=== PATIENT | female | born 1995 | race Caucasian/White ===

== ENCOUNTER 2017-06-08 12:24 | Emergency (ER) | payer SELFPAY | END 2017-06-08 13:57 | disposition home or self-care (01) | LOC: ERS 12:24 | DX: J02.9 Acute pharyngitis, unspecified (principal); K21.9 Gastro-esophageal reflux disease without esophagitis; J45.909 Unspecified asthma, uncomplicated; F32.9 Major depressive disorder, single episode, unspecified; F17.210 Nicotine dependence, cigarettes, uncomplicated; Z79.899 Other long term (current) drug therapy | CPT/HCPCS: 87081; 87430; 99283 ==

== ENCOUNTER 2018-03-07 23:33 | Emergency (ER) | payer SELFPAY ==
[2018-03-07 23:51] LABS: Bilirubin Negative (Negative); Blood, Urine Negative (Negative); Clarity CLEAR (Clear); Glucose, Urine (Dipstick) Negative (Negative); Leukocyte Moderate (Negative); Nitrite Negative (Negative); Pregnancy Test - Urine (BHCG) POSITIVE (Negative); Pregu Control Background? CLEAR/WHITE (CLR/WHITE); Pregu Control Bar Appear? YES (CONTROL BAR); Protein, Urine (Dipstick) Negative (Neg-Trace); Specific Gravity 1.016 (1.002-1.036); Specific Gravity, Urine 1.016 (1.002-1.036)
[2018-03-07 23:53] LABS: Bacteria/HPF Rare-Few HPF (None Seen); Hyaline Casts/LPF 0-3 HYALINE CAST LPF (0-3 Hyaline); Pathc Cast-AUWi Flag 0.58 (0-2.49); RBC/HPF 0-3 HPF (0-3); Squamous Epithelial 0-3 HPF (0-3)
[2018-03-08 00:23] LABS: #Basophils 0.1 thou/uL (0.0-0.2); #Eosinphils 0.2 thou/uL (0.0-0.7); #Lymphocytes 1.9 thou/uL (1.20-3.40); #Monocytes 0.5 thou/uL (0.11-0.59); %Basophils 1.2 % (0.0-1.0); %Eosinophils 1.8 % (0.0-10.0); %Lymphocytes 19.9 % (21.0-51.0); %Monocytes 5.4 % (0.0-10.0); %Neutrophils 71.7 % (42.0-75.0); Hemoglobin 13.6 g/dL (12.0-16.0); Mean Corpuscular HGB CONC 33.3 g/dL (32.0-36.0); Mean Corpuscular Hemoglobin 31.1 pg (27.0-31.0); Mean Corpuscular Volume 93.4 fL (78.0-98.0); Mean Platelet Volume 9.1 fL (7.4-10.4); Platelet Count 261 thou/uL (130-400); RBC Distribution Width 10.9 % (11.5-14.5); Red Blood Cell (RBC) Count 4.38 mill/uL (4.20-5.40); White Blood Cell (WBC) Count 9.7 thou/uL (4.8-10.8)
[2018-03-08 00:46] LABS: ALT (SGPT) 7 U/L (8-55); AST (SGOT) 17 U/L (5-34); Albumin 4.4 g/dL (3.5-5.0); Alkaline Phosphatase 89 U/L (40-150); Anion Gap 13 mmol/L (10-20); BUN (Urea Nitrogen) 5 mg/dL (7.0-18.7); Bilirubin, Total 0.5 mg/dL (0.2-1.2); Calc. Creatinine Clearance 0 mL/min (70-130); Calcium 9.5 mg/dL (7.8-10.44); Carbon Dioxide 20 mmol/L (22-29); Chloride 105 mmol/L (98-107); Estimated GFR-MDRD Greater than 90; Globulin 3.4 g/dL (2.4-3.5); Glucose 91 mg/dL (70-105); Potassium 4.1 mmol/L (3.5-5.1); Protein, Total 7.8 g/dL (6.0-8.3); Sodium 134 mmol/L (136-145)
--- NOTE | 2018-03-08 07:33 | ULT ---
ULTRASOUND PELVIC ULTRASOUND TRANSVAGINAL DOPPLER DUPLEX: DATE: 03/08/18. TIME: 2:45 a.m. HISTORY: A 22-year-old female with positive beta HCG and right-sided pelvic pain. Rule out ectopic . TECHNIQUE: Transabdominal transducer used to evaluate intrapelvic contents using the urinary bladder as an acous tic window. Endovaginal transducer used to visualize intrapelvic contents in greater detail. Color fl ow Doppler and Pulsed Doppler spectral waveform analysis of ovaries. FINDINGS: There is an intrauterine gestational sac containing an embryonic pole with crown-rump length of 0.7 c m corresponding to 6W 4 D gestational age. No subchorionic hemorrhage. Embryonic heart rate is 118 bpm. No free fluid in the cul-de-sac. No evidence of ectopic . Bilateral arteries are nor mal in size and have blood flow by Doppler. No ovarian cyst. IMPRESSION: Live 1st trimester intrauterine gestation estimated to be 6 weeks 4 days gestational age. CARL Kraus POS: HERMAN
[2018-03-09 03:51] LABS: Chlamydia by PCR DETECTED (NotDetected); GC by PCR Not Detected (NotDetected)
== END 2018-03-08 04:32 | disposition left against medical advice (07) ==
LOC: ERS 23:33
DX: O99.89 Other specified diseases and conditions complicating pregnancy, childbirth and the puerperium (principal); R10.31 Right lower quadrant pain; O99.611 Diseases of the digestive system complicating pregnancy, first trimester; K21.9 Gastro-esophageal reflux disease without esophagitis; O99.341 Other mental disorders complicating pregnancy, first trimester; F32.9 Major depressive disorder, single episode, unspecified; O99.511 Diseases of the respiratory system complicating pregnancy, first trimester; J45.909 Unspecified asthma, uncomplicated; O99.331 Smoking (tobacco) complicating pregnancy, first trimester; F17.210 Nicotine dependence, cigarettes, uncomplicated; Z3A.01 Less than 8 weeks gestation of pregnancy
CPT/HCPCS: 36415; 76856; 80053; 81003; 81015; 81025; 84702; 85025; 87480; 87491; 87510; 87591; 87660; 93976

== ENCOUNTER 2018-08-02 22:05 | Day surgery (SDC) | payer OTHER, SELFPAY | END 2018-08-02 23:37 | disposition home or self-care (01) | LOC: ER/OP 22:05 | PROVIDERS: ATTEND Obstetrics & Gynecology | DX: Z29.13 Encounter for prophylactic Rho(D) immune globulin (principal); O99.519 Diseases of the respiratory system complicating pregnancy, unspecified trimester; J45.909 Unspecified asthma, uncomplicated; Z88.5 Allergy status to narcotic agent; Z88.8 Allergy status to other drugs, medicaments and biological substances | CPT/HCPCS: 90384; 96372 ==

== ENCOUNTER 2018-09-29 15:07 | Day surgery (SDC) | payer OTHER ==
--- NOTE | 2018-09-29 15:55 | PDOC.LDHP ---
Labor and Delivery H&P Chief complaint: other (Right flank pain at [address] quintero) HPI: 23 yo SAB1 in past at 36 weeks 1 day here forright flank pain moving to groin. No CTX, no LOF, no VB, no fevers, no trauama. Good FM. Review of Systems: complete ROS done and as per HPI Current gestational age (weeks): 36 (1 day) Due date: 10/26/18 Dating criteria: last menstrual period Grav: 2 Para: 0 OB History Details: SAB X 1 Current complications: none Abnormal US findings: No Past Medical History: Hypothuroidism; HX Asthma Current medications: pre-gely vitamins, other (Omnithyroid) Previous surgical history: other (Right foot surgery; esopgageal "stretching") Allergies/Adverse Reactions: Allergies Allergy/AdvReac Type Severity Reaction Status Date / Time amphetamine [From Adderall] Allergy Verified 09/29/18 15:43 cephalexin [From Keflex] Allergy Verified 09/29/18 15:42 codeine Allergy Verified 09/29/18 15:42 dextroamphetamine Allergy Verified 09/29/18 15:43 [From Adderall] Social history: none - Physical Exam Vital signs reviewed and normal: yes (114/72 92 18 98.5) General: NAD Heart: RRR Lungs: CTAB Abdomen: gravid Extremeties: no edema FHT: category 1 [place] contractions every: irritability - Assessment 36 weeks with right flank pain - Plan Plan: observation in L&D (Patient seen and examined. We will: 1. check CX 2. Order cath UA 3. Order renal and bladder sono to eval for jet 4. IVF hydrate)
[2018-09-29] MEDS ORDERED: Lactated Ringer's 1,000 ML IV SCH (16:00)
--- NOTE | 2018-09-29 17:18 | ULT ---
RENAL ULTRASOUND: 09/29/18 HISTORY: Possible renal colic. Multiple longitudinal and transverse images of the kidneys and bladder is obtained using a multihertz curvilinear transducer. Real time color flow images obtained. Images demonstrate both visualization of both kidneys. Right kidney measures 11.2 and left kidney 11 .5 cm from pole to pole. There is small amount of right sided hydronephrosis. The right ureteral jet could not be documented definitively. There is minimal but not significant degree of left sided hydro nephrosis. The left ureteral jet was visualized. No evidence of pulmonary parenchymal masses or lesions seen otherwise. IMPRESSION: Mild right sided hydronephrosis with inability to definitively visualize the right ureteral jet by co elizabeth flow sonography. POS: TYRELL
[2018-09-29 17:44] LABS: Bilirubin Negative (Negative); Blood, Urine Small (Negative); Clarity CLOUDY (Clear); Glucose, Urine (Dipstick) Negative (Negative); Leukocyte Large (Negative); Nitrite Negative (Negative); Protein, Urine (Dipstick) Negative (Neg-Trace); Specific Gravity, Urine 1.008 (1.002-1.036); pH, Urine 6.5 (5.0-9.0)
[2018-09-29 17:46] LABS: Bacteria/HPF None Seen HPF (None Seen); RBC/HPF 0-3 HPF (0-3)
[2018-09-29 17:47] LABS: Pathc Cast-AUWi Flag 3.12 (0-2.49); Yeast-AUWi Flag 39.7 (0-25.0)
[2018-09-29 17:59] LABS: Hyaline Casts/LPF 0-3 HYALINE CAST LPF (0-3 Hyaline); Other Casts/LPF None Seen LPF (0-3 Hyaline); Trichomonas/HPF 1+ HPF (None Seen); Urine Culture Reflex No No
--- NOTE | 2018-09-29 18:19 | PDOC.EVN ---
Event Note - Event Note Event Note: Renal sono ok except indeterminate right ureteral jet but no significant hydro outside of preg changes. Urine with trich species....may be STI CX Closed Will order VP3
--- NOTE | 2018-09-29 18:35 | PDOC.EVN ---
Event Note - Event Note Event Note: Ar Bedside and reviewed the UA results...trich reviewed...will treat with 2 grams flagyl po now STI info given Again, this was confirmed by [employer] verbal report to me. Partner needs RX, no sex until RX given
[2018-09-29] MEDS ORDERED: metroNIDAZOLE 500 MG TAB PO SCH (18:45)
== END 2018-09-29 19:00 | disposition home or self-care (01) ==
LOC: L&D/OP 15:07
PROVIDERS: ATTEND Obstetrics & Gynecology
DX: O99.89 Other specified diseases and conditions complicating pregnancy, childbirth and the puerperium (principal); R10.9 Unspecified abdominal pain; O99.283 Endocrine, nutritional and metabolic diseases complicating pregnancy, third trimester; E03.9 Hypothyroidism, unspecified; O99.513 Diseases of the respiratory system complicating pregnancy, third trimester; J45.909 Unspecified asthma, uncomplicated; O98.313 Other infections with a predominantly sexual mode of transmission complicating pregnancy, third trimester; A59.9 Trichomoniasis, unspecified; Z3A.36 36 weeks gestation of pregnancy; Z79.899 Other long term (current) drug therapy; Z88.1 Allergy status to other antibiotic agents; Z88.5 Allergy status to narcotic agent; Z88.8 Allergy status to other drugs, medicaments and biological substances; Z98.890 Other specified postprocedural states
CPT/HCPCS: 51701; 76770; 81001; 96360; 99282

== ENCOUNTER 2018-10-18 19:19 | Day surgery (SDC) | payer OTHER ==
[2018-10-18 20:03] VITALS: BMI 27.9
--- NOTE | 2018-10-19 01:38 | SS ---
DATE OF ADMISSION: 10/18/2018 DATE OF DISCHARGE: 10/18/2018 REGULAR PHYSICIAN: Tristen Wagoner MD. EVALUATING PHYSICIAN: Angelo Rodas MD. CHIEF COMPLAINT: Lower abdominal pressure and pulling, contractions. HISTORY OF PRESENT ILLNESS: Ms. Saeed is a 23-year-old white G2, P0, AB1 with an estimated date of confinement of 10/26/2018, who presents complaining of lower abdominal pressure and pulling with occasional contractions. She denies ruptured membranes, vaginal bleeding, or decreased movement. Her care has been with Dr. Wagoner. PAST OBSTETRICAL HISTORY: Includes a miscarriage for which she required D and C. PAST MEDICAL HISTORY: Asthma and hypothyroidism. CURRENT MEDICATIONS: 1. vitamins. 2. Rescue inhaler. 3. [place] Thyroid. PAST SURGICAL HISTORY: Includes surgery to her foot and a D and C. ALLERGIES: INCLUDED KEFLEX, CODEINE, AND ADDERALL. SOCIAL HISTORY: She smokes less than half a package of cigarettes per day. She denies illicit drug use. FAMILY HISTORY: Unremarkable. REVIEW OF SYSTEMS: She denies nausea, vomiting, fever, chills, ruptured membranes, or vaginal bleeding. PHYSICAL EXAMINATION: VITAL SIGNS: Blood pressure is 109/73, pulse is 63. She is afebrile. GENERAL: She is pleasant, in no acute distress. ABDOMEN: Soft, nontender, and gravid. PELVIC: Pelvic examination by Labor nurse shows the cervix to be 1 cm dilated, 50% effaced with a vertex presenting at the -1 station. heart rate tracing shows spontaneous accelerations and good tvbt-sr-lwby variability. No significant regular uterine contractions were seen. ASSESSMENT: 1. 38 and 6/7th week intrauterine . 2. No evidence of active labor. 3. Round ligament pain. PLAN: The patient will be discharged to home. She was told that she could use Tylenol or do warm soak in a tub regarding her discomfort. Labor precautions were reviewed with her in detail. She states she has an appointment with Dr. Wagoner next week. Job ID: [id number]
== END 2018-10-18 20:55 | disposition home health service (06) ==
LOC: L&D/OP 19:19
PROVIDERS: ATTEND Obstetrics & Gynecology
DX: O47.9 False labor, unspecified (principal); J45.909 Unspecified asthma, uncomplicated; E03.9 Hypothyroidism, unspecified; F17.210 Nicotine dependence, cigarettes, uncomplicated; Z3A.38 38 weeks gestation of pregnancy; Z79.899 Other long term (current) drug therapy; Z88.5 Allergy status to narcotic agent; Z88.8 Allergy status to other drugs, medicaments and biological substances
CPT/HCPCS: 99282

== ENCOUNTER 2018-10-22 22:00 | Inpatient (IN) | payer OTHER ==
[2018-10-22 23:09] VITALS: BMI 27.6
[2018-10-22] MEDS ORDERED: Methylergonovine 0.2 MG/ML VIAL IM PRN (23:14)
[2018-10-22] MEDS ORDERED: Misoprostol 200 MCG TAB PR PRN (23:14)
[2018-10-22] MEDS ORDERED: Docusate 100 MG CAP PO PRN (23:14)
[2018-10-22] MEDS ORDERED: Promethazine HCl 25 MG/ML VIAL IM PRN (23:14)
[2018-10-22] MEDS ORDERED: Carboprost 250 MCG/ML AMP IM PRN (23:14)
[2018-10-22] MEDS ORDERED: Ondansetron PF 4 MG/2 ML Vial IVP PRN (23:14)
[2018-10-22] MEDS ORDERED: HYDROcodone/Acetaminophen 5/325 mg Tablet PO PRN ×2 (23:14)
[2018-10-22] MEDS ORDERED: Diphenoxylate HCl/Atropine Tablet PO PRN ×2 (23:14)
[2018-10-22] MEDS ORDERED: Zolpidem Tartrate 5 MG TAB PO PRN (23:14)
[2018-10-22] MEDS ORDERED: Ibuprofen 800 MG TAB PO PRN (23:14)
[2018-10-22] MEDS ORDERED: Lidocaine 1% (PF) 30 ML VIAL SC PRN (23:14)
[2018-10-22] MEDS ORDERED: Butorphanol Tartrate 1 MG/ML VIAL SLOW IVP PRN (23:14)
[2018-10-22] MEDS ORDERED: NS w/ Oxytocin 10 units 500 ML IV SCH ×2 (23:15→23:30)
[2018-10-22] MEDS ORDERED: Penicillin G Potassium 5 MILL.UNITS in Sodium Chloride 0.9% 100 ML IVPB SCH (23:30)
[2018-10-22] MEDS: Lactated Ringer's 1,000 ML IV SCH (23:40)
[2018-10-22] MEDS: Misoprostol 100 MCG TAB VAG SCH (23:40)
[2018-10-22 23:54] LABS: Hemoglobin 11.8 g/dL (12.0-16.0); Mean Corpuscular HGB CONC 32.9 g/dL (32.0-36.0); Mean Corpuscular Hemoglobin 29.5 pg (27.0-31.0); Mean Corpuscular Volume 89.6 fL (78.0-98.0); Mean Platelet Volume 9.7 fL (7.4-10.4); Platelet Count 295 thou/uL (130-400); RBC Distribution Width 13.1 % (11.5-14.5); Red Blood Cell (RBC) Count 4.01 mill/uL (4.20-5.40); White Blood Cell (WBC) Count 9.6 thou/uL (4.8-10.8)
[2018-10-23 00:32] LABS: Syphilis Antibody Nonreactive (Nonreactive); Syphilis Antibody Index 0.04 S/CO (<1.00 Non-Reactive)
[2018-10-23 01:51] LABS: HBSAg Index 0.29 S/CO (0-0.99); Hep B Surf Ag Non-Reactive S/CO (NonReactive)
[2018-10-23] MEDS: Lactated Ringer's 1,000 ML IV SCH (02:30)
[2018-10-23] MEDS ORDERED: Fentanyl 4 mcg/Bup 0.1% Cadd 100 ML ONE (03:55)
[2018-10-23] MEDS ORDERED: Fentanyl 100 MCG/2 ML VIAL ONE (04:10)
[2018-10-23] MEDS ORDERED: Penicillin G 2.5 MILL.units 2.5 MILL.UNITS in Premix Bag 1 BAG IVPB SCH (05:00)
[2018-10-23] MEDS: Misoprostol 100 MCG TAB VAG SCH ×2 (05:26→06:43)
[2018-10-23] MEDS ORDERED: diphenhydrAMINE 50 MG/ML VIAL IVP PRN (05:44)
[2018-10-23] MEDS ORDERED: Promethazine HCl 25 MG/ML VIAL IM PRN ×2 (05:44→09:05)
[2018-10-23] MEDS ORDERED: Ondansetron PF 4 MG/2 ML Vial IVP PRN ×2 (05:44→09:05)
[2018-10-23] MEDS ORDERED: Naloxone HCl 0.4 mg/ml Vial IVP PRN ×2 (05:44)
[2018-10-23] MEDS ORDERED: Acetaminophen 325 MG TAB PO PRN (05:44)
[2018-10-23] MEDS ORDERED: Eucerin (Mineral Oil/Petrolatum,White) 30 gm Jar TOP PRN (05:44)
[2018-10-23] MEDS ORDERED: Lactated Ringer's 500 ML IV PRN (05:44)
[2018-10-23] MEDS ORDERED: ePHEDrine/0.9% NaCl/PF SYRINGE 50 mg/10 ml SLOW IVP PRN (05:44)
[2018-10-23] MEDS ORDERED: Communication Order-Pharmacy FS SCH (05:45)
[2018-10-23] MEDS ORDERED: Fentanyl 4 mcg/Bupivacaine 0.1% Cassette 100 ML EPIDURAL SCH (05:45)
[2018-10-23] MEDS: NS / Oxytocin 40 units/1000ml 1,000 ML IV PRN ×2 (07:08→08:02)
--- NOTE | 2018-10-23 08:29 | PDOC.LDHP ---
Labor and Delivery H&P Chief complaint: scheduled induction HPI: 23 y/o AT 39 AND 3 weeks, presents for term elective induction. Grav: 2 Para: 0 Current complications: none, other Abnormal US findings: No Current medications: pre- vitamins Allergies/Adverse Reactions: Allergies Allergy/AdvReac Type Severity Reaction Status Date / Time amphetamine [From Adderall] Allergy Intermediate Hives Verified 10/22/18 22:53 cephalexin [From Keflex] Allergy Intermediate Hives Verified 10/22/18 22:53 codeine Allergy Intermediate Hives Verified 10/22/18 22:53 dextroamphetamine Allergy Intermediate Hives Verified 10/22/18 22:53 [From Adderall] - Physical Exam Vital signs reviewed and normal: yes General: NAD, resting Heart: RRR Lungs: nonlabored breathing Abdomen: NTTP Extremeties: no edema FHT: category 1 - Plan Plan: admit to L&D, labor augmentation if indicated
[2018-10-23] MEDS ORDERED: HYDROcodone/Acetaminophen 5/325 mg Tablet PO PRN ×2 (09:05)
[2018-10-23] MEDS ORDERED: diphenhydrAMINE 25 MG CAP PO PRN (09:05)
[2018-10-23] MEDS ORDERED: Varicella virus, LIVE 0.5 ML VIAL SC ONE (09:05)
[2018-10-23] MEDS ORDERED: Adacel (T-DAP) 0.5 ML SYRINGE IM ONE (09:05)
[2018-10-23] MEDS ORDERED: Preparation H Ointment 28 GM TUBE PR PRN (09:05)
[2018-10-23] MEDS ORDERED: NS / Oxytocin 40 units/1000ml 1,000 ML IV SCH (09:05)
[2018-10-23] MEDS ORDERED: Lanolin Ointment 7 GM TUBE TOP PRN (09:05)
[2018-10-23] MEDS ORDERED: Bisacodyl 10 MG SUPP PR PRN (09:05)
[2018-10-23] MEDS ORDERED: Measles/Mumps/Rubella 10 MCG/0.5 ML VIAL SC ONE (09:05)
[2018-10-23] MEDS ORDERED: Milk Of Magnesia 30 ML UDCUP PO PRN (09:05)
[2018-10-23] MEDS: Ibuprofen 800 MG TAB PO SCH ×2 (12:31→22:42)
[2018-10-23] MEDS: Prenatal Vitamin 1 TAB PO SCH (16:21)
[2018-10-23] MEDS: Docusate Calcium (SURFAK) 240 MG CAP PO SCH ×2 (16:21→22:43)
[2018-10-23] MEDS: Ferrous Sulfate 325 MG TAB PO SCH (16:22)
[2018-10-23] MEDS ORDERED: Bupivacaine/Epinephrine 0.25% 30 ML VIAL ONE (18:00)
[2018-10-24] MEDS: Ibuprofen 800 MG TAB PO SCH ×3 (05:39→22:12)
[2018-10-24 08:23] LABS: Hemoglobin 11.1 g/dL (12.0-16.0); Mean Corpuscular HGB CONC 33.5 g/dL (32.0-36.0); Mean Corpuscular Hemoglobin 30.3 pg (27.0-31.0); Mean Corpuscular Volume 90.4 fL (78.0-98.0); Mean Platelet Volume 8.8 fL (7.4-10.4); Platelet Count 204 thou/uL (130-400); RBC Distribution Width 13.2 % (11.5-14.5); Red Blood Cell (RBC) Count 3.67 mill/uL (4.20-5.40); White Blood Cell (WBC) Count 9.9 thou/uL (4.8-10.8)
[2018-10-24] MEDS: Prenatal Vitamin 1 TAB PO SCH (08:53)
[2018-10-24] MEDS: Docusate Calcium (SURFAK) 240 MG CAP PO SCH ×3 (08:53→22:13)
[2018-10-24] MEDS: Ferrous Sulfate 325 MG TAB PO SCH ×2 (08:53→17:54)
--- NOTE | 2018-10-24 18:59 | PDOC.PP ---
Post Progress Note Post Day #: 1 PO intake tolerated: yes Flatus: yes Ambulation: yes Vital Signs (12 hours) Temp Pulse Resp BP Pulse Ox 10/24/18 11:43 98.0 F 63 20 101/56 L 10/24/18 08:22 98.2 F 54 L 20 102/63 96 10/24/18 08:00 96 Weight Weight 161 lb - Physical Examination General: NAD Cardiovascular: no m/r/g, RRR Respiratory: clear to auscultation bilaterally, non-labored breathing Abdominal: + bowel sounds, lochia, no distention, appropriately TTP Extremities: negative homans (B) Neurological: no gross focal deficits Psychiatric: A&Ox3, normal affect (DC tomorrow) Result Diagrams: 10/24/18 08:14 Additional Labs: Post Labs Blood Type O NEGATIVE 10/22/18 23:37 Hep Bs Antigen Non-Reactive S/CO (NonReactive) 10/22/18 23:37
--- NOTE | 2018-10-25 02:53 | DN ---
DATE OF PROCEDURE: 10/23/2018 DATE OF SERVICE: 10/23/2018 at 0704, [place] daylight savings time. PREOPERATIVE DIAGNOSIS: Intrauterine at 39 weeks and 4 days with a term induction of labor for the [place] of town. POSTOPERATIVE DIAGNOSIS: Intrauterine at 39 weeks and 4 days with a term induction of labor for the patient living [place] of town. PROCEDURE: Spontaneous vaginal delivery with intact perineum and small right intra-labial laceration requiring interrupted sutures. QUANTITATIVE BLOOD LOSS: 128 mL. COMPLICATIONS: None. PROCEDURE IN DETAIL: The patient presented to [facility] where she was admitted to the labor and delivery service. The patient underwent a normal and uneventful labor with normal cervical dilatation until she was found to be completely dilated. She was then allowed to push and was able to bring the baby down and delivered the baby in a vertex presentation without difficulties. Once the head delivered in occiput anterior position, the shoulders followed spontaneously along with the rest of the baby's body. Once out the baby's mouth and nose were bulb suctioned. The cord was clamped and cut and baby was handed to waiting attendants. Cord blood was collected. Gentle fundal massage was performed and the placenta delivered intact without problems. Hemostasis was assured. Quantitative blood loss was calculated. Inspection of the cervix, vaginal vault, and perineum did not reveal any lacerations needing suturing. Once again, hemostasis was within normal limits and the patient was allowed to recover in the labor and delivery room. Baby went to nursery. Job ID: [id number]
[2018-10-25] MEDS: Ibuprofen 800 MG TAB PO SCH (05:58)
[2018-10-25] MEDS: Docusate Calcium (SURFAK) 240 MG CAP PO SCH (09:28)
[2018-10-25] MEDS: Prenatal Vitamin 1 TAB PO SCH (09:28)
[2018-10-25] MEDS: Ferrous Sulfate 325 MG TAB PO SCH (09:29)
[2018-10-25 12:04] VITALS: BP 106/66; TEMP 98.2
== END 2018-10-25 12:40 | disposition home or self-care (01) | DRG 807 ==
LOC: L&D 22:29 → 3SW 10-23 09:21
PROVIDERS: ADMIT Obstetrics & Gynecology; ATTEND Obstetrics & Gynecology
PROC: 10E0XZZ Delivery of Products of Conception, External Approach (ICD-10-PCS; principal; 2018-10-24)
DX: O80 Encounter for full-term uncomplicated delivery (principal); Z37.0 Single live birth; Z3A.39 39 weeks gestation of pregnancy; Z88.5 Allergy status to narcotic agent; Z88.1 Allergy status to other antibiotic agents
CPT/HCPCS: 36415; 51702; 85027; 86780; 86850; 86870; 86900; 86901; 87340; 90471; 90715; 90732; G0009; J0595; J2540; J3010; J3490

== ENCOUNTER 2019-11-21 09:31 | Inpatient (IN) | payer OTHER ==
[~2019-11-21 09:31] MED LIST: Bupivacaine PF 0.5% 30 ML VIAL ONE; EPHEDRINE 25 MG/5 ML SYRINGE ONE
[2019-11-21] MEDS ORDERED: Promethazine HCl 25 MG/ML VIAL IM PRN ×2 (09:40→10:40)
[2019-11-21] MEDS ORDERED: NS / Oxytocin 40 units/1000ml 1,000 ML IV PRN (09:40)
[2019-11-21] MEDS ORDERED: Butorphanol Tartrate 1 MG/ML VIAL SLOW IVP PRN (09:40)
[2019-11-21] MEDS ORDERED: Ondansetron PF 4 MG/2 ML Vial IVP PRN ×3 (09:40→14:36)
[2019-11-21] MEDS ORDERED: Lidocaine 1% (PF) 30 ML VIAL SC PRN (09:40)
[2019-11-21] MEDS ORDERED: hydrALAZINE 20 MG/ML VIAL SLOW IVP PRN ×2 (09:40→14:36)
[2019-11-21] MEDS ORDERED: Acetaminophen 500 MG TAB PO PRN (09:40)
[2019-11-21] MEDS ORDERED: Ibuprofen 800 MG TAB PO PRN (09:40)
[2019-11-21] MEDS ORDERED: Penicillin G Potassium 5 MILL.UNITS VIAL ONE (09:42)
[2019-11-21] MEDS ORDERED: Penicillin G Potassium 5 MILL.UNITS in Sodium Chloride 0.9% 100 ML IVPB SCH (09:45)
[2019-11-21] MEDS ORDERED: Lactated Ringer's 1,000 ML IV SCH (09:45)
[2019-11-21] MEDS ORDERED: Lidocaine 1% (PF) 30 ML VIAL ONE (09:46)
[2019-11-21] MEDS ORDERED: NS / Oxytocin 40 units/1000ml 1,000 ML ONE (09:46)
[2019-11-21 09:49] VITALS: BMI 26.4
[2019-11-21] MEDS ORDERED: Butorphanol Tartrate 1 MG/ML VIAL ONE (09:52)
--- NOTE | 2019-11-21 09:53 | PDOC.FPROB ---
FMR OB H&P: HPI - History of Present Illness Chief Complaint: Contractions Indentification: 24 year old at 39.2 wks History of Present Illness: 24 year old at 39.2 wks presents with painful contractions q5 minutes since this morning. Patient is GBS positive. She denies any complications in . Denies LoF, vaginal bleeding, vaginal discharge. Endorses movement. Primary Care Physician: Dr. 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 Admits to tobacco use. FMR OB H&P: Medications - Current Home Medications: Medication Instructions Recorded Confirmed Type No122/Iron/Folic Acid 1 each PO DAILY 10/18/18 10/22/18 History [ Multi Tablet] Thyroid [[place] Thyroid] 60 mg PO DAILY 10/18/18 11/21/19 History Albuterol Sulfate [Proventil Hfa] 2 puff INH Q6H PRN 10/22/18 10/22/18 History Allergies/Adverse Reactions: Allergies Allergy/AdvReac Type Severity Reaction Status Date / Time amphetamine [From Adderall] Allergy Intermediate Hives Verified 11/21/19 09:49 cephalexin [From Keflex] Allergy Intermediate Hives Verified 11/21/19 09:49 codeine Allergy Intermediate Hives Verified 11/21/19 09:49 dextroamphetamine Allergy Intermediate Hives Verified 11/21/19 09:49 [From Adderall] FMR OB H&P: ROS - Review of Systems General: denies: fever/chills Eyes: denies: vision changes, double vision, scotomas ENT: denies: nasal congestion, rhinorrhea, sore throat Cardiovascular: denies: chest pain, palpitation, edema Respiratory: denies: cough, congestion, shortness of breath Gastrointestinal: reports: abdominal pain. denies: nausea, vomiting Genitourinary (Female): reports: contractions. denies: dysuria, vaginal discharge, vaginal pain Musculoskeletal: denies: pain, stiffness, tenderness Neurologic: denies: numbness, syncope Integumentary: denies: itching, rash, lesions Hematologic/Lymphatic: denies: prolonged or excessive bleeding Psychological: denies: depression FMR OB H&P: Vital Signs - Maternal Vital signs: BP 134/71 Pulse 73 Pulse ox 98% Afebrile - Heart Tones Baseline: 120 Variability: moderate Acceleration: present Deceleration: absent Category: category 1 [place] contractions every: q3-5 min FMR OB H&P: Physical Exam - Physical Exam General: NAD, awake, alert and oriented HEENT: MMM, grossly normal vision, grossly normal hearing Heart: RRR, pulses present General: CTAB Abdomen: soft, gravid, non-tender Musculoskeletal: pulses present, FROM in all four extremities Skin: no rash, capillary refill <2 seconds Lymphatic: no unusual bruising or bleeding Psychiatric: intact recent and remote memory, good judgement and insight, normal mood and affect - Pelvic Exam SVE: 5/100/0 FMR OB H&P: A/P - Problem List (1) Term Current Visit: Yes Status: Acute Code(s): Z34.90 - ENCNTR FOR SUPRVSN OF NORMAL , UNSP, UNSP TRIMESTER (2) Active labor Current Visit: Yes Status: Acute Code(s): BGH1768 - (3) GBS (group B streptococcus) infection Current Visit: Yes Status: Acute Code(s): A49.1 - STREPTOCOCCAL INFECTION, UNSPECIFIED SITE Disposition: 24 year old at 39.2 wks sIUP in active labor - Admit to L&D - Augmentation as needed - GBS ppx (Pen G ok, patient has received in past) - Epidural for pain control GBS positive - ppx with Pen G (Pen G ok despite allergy as patient has received this in the past) Dispo: Admit to L&D. Augmentation as needed. Discussion: Date/Time: 11/21/19 8498 This H&P was discussed with Dr. Juarez who agrees with the above documentation and plan. Signature: Kristine Farias, PGY-3
[2019-11-21] MEDS ORDERED: Fentanyl 4 mcg/Bup 0.1% Cadd 100 ML ONE (09:54)
[2019-11-21 09:56] LABS: Hemoglobin 12.4 g/dL (12.0-16.0); Mean Corpuscular HGB CONC 34.1 g/dL (32.0-36.0); Mean Corpuscular Hemoglobin 29.1 pg (27.0-31.0); Mean Corpuscular Volume 85.4 fL (78.0-98.0); Mean Platelet Volume 9.7 fL (7.4-10.4); Platelet Count 238 thou/uL (130-400); RBC Distribution Width 13.3 % (11.5-14.5); Red Blood Cell (RBC) Count 4.24 mill/uL (4.20-5.40); White Blood Cell (WBC) Count 8.7 thou/uL (4.8-10.8)
[2019-11-21] MEDS ORDERED: NS w/ Oxytocin 10 units 500 ML IV SCH (10:15)
[2019-11-21 10:36] LABS: Syphilis Antibody Nonreactive (Nonreactive); Syphilis Antibody Index 0.03 S/CO (<1.00 Non-Reactive)
[2019-11-21] MEDS ORDERED: EPHEDRINE 25 MG/5 ML SYRINGE SLOW IVP PRN (10:40)
[2019-11-21] MEDS ORDERED: diphenhydrAMINE 50 MG/ML VIAL IVP PRN (10:40)
[2019-11-21] MEDS ORDERED: Acetaminophen 325 MG TAB PO PRN (10:40)
[2019-11-21] MEDS ORDERED: Lactated Ringer's 500 ML IV PRN (10:40)
[2019-11-21] MEDS ORDERED: Naloxone HCl 0.4 mg/ml Vial IVP PRN ×2 (10:40)
[2019-11-21 10:42] LABS: Hep B Surf Ag Non-Reactive S/CO (NonReactive)
[2019-11-21] MEDS ORDERED: Fentanyl 4 mcg/Bupivacaine 0.1% Cassette 100 ML EPIDURAL SCH (10:45)
[2019-11-21] MEDS ORDERED: Communication Order-Pharmacy FS SCH (10:45)
--- NOTE | 2019-11-21 12:22 | PDOC.OPDEL ---
OB Operative/Delivery Note Delivery Dr/Surgeon: Ann Farias Pre-Delivery Diagnosis: active labor Procedure/Post Delivery Dx: spontaneous vaginal delivery Weeks gestation: 39 (39.2 wks) Anesthesia: epidural - Findings A Sex: female Weight: 3.197 kg - 1 min: 8 - 5 min: 9 - Additional Findings/Plan Placenta delivered: spontaneous Repaired Obstetrical Laceration: none Estimated blood loss: <100 mL Compilations/Other Findings: See dictation for full details regarding delivery. Post delivery plan: routine recovery
[2019-11-21] MEDS ORDERED: Penicillin G 2.5 MILL.units 2.5 MILL.UNITS in Premix Bag 1 BAG IVPB SCH (14:00)
[2019-11-21] MEDS ORDERED: diphenhydrAMINE 25 MG CAP PO PRN (14:36)
[2019-11-21] MEDS ORDERED: Lanolin Ointment 7 GM TUBE TOP PRN (14:36)
[2019-11-21] MEDS ORDERED: Preparation H Ointment 28 GM TUBE PR PRN (14:36)
[2019-11-21] MEDS ORDERED: Bisacodyl 10 MG SUPP PR PRN (14:36)
[2019-11-21] MEDS ORDERED: NS / Oxytocin 40 units/1000ml 1,000 ML IV SCH (14:36)
[2019-11-21] MEDS ORDERED: Benzocaine-Menthol 82.5 ML CAN TOP PRN (14:36)
[2019-11-21] MEDS ORDERED: Milk Of Magnesia 30 ML UDCUP PO PRN (14:36)
[2019-11-21] MEDS: Ibuprofen 800 MG TAB PO SCH ×2 (16:36→22:15)
[2019-11-21] MEDS: Ferrous Sulfate 325 MG TAB PO SCH (19:23)
[2019-11-21] MEDS ORDERED: traMADol HCl 50 MG TAB PO PRN (22:06)
[2019-11-21] MEDS: Docusate Calcium (SURFAK) 240 MG CAP PO SCH (22:15)
[2019-11-22] MEDS: Ibuprofen 800 MG TAB PO SCH ×3 (05:50→21:44)
[2019-11-22] MEDS: Ferrous Sulfate 325 MG TAB PO SCH ×2 (08:15→18:05)
[2019-11-22] MEDS ORDERED: Prenatal Vitamin 1 TAB PO SCH (09:00)
[2019-11-22] MEDS ORDERED: Adacel (T-DAP) 0.5 ML SYRINGE IM ONE (09:00)
[2019-11-22] MEDS: Docusate Calcium (SURFAK) 240 MG CAP PO SCH ×2 (10:22→21:47)
--- NOTE | 2019-11-22 11:56 | PDOC.PP ---
Post Progress Note Post Day #: 1 PO intake tolerated: yes Flatus: yes Ambulation: yes Vital Signs (12 hours) Temp Pulse Resp BP Pulse Ox 11/22/19 08:15 98.1 F 64 18 101/58 L 98 11/22/19 04:06 98.0 F 64 18 105/54 L 98 11/22/19 00:34 98.1 F 65 16 103/64 97 Weight Weight 154 lb - Physical Examination General: NAD Cardiovascular: no m/r/g, RRR Respiratory: clear to auscultation bilaterally, non-labored breathing Abdominal: + bowel sounds, lochia, no distention, appropriately TTP Extremities: negative homans (B) Skin: CS incision dry & intact, no rash Neurological: no gross focal deficits Psychiatric: A&Ox3, normal affect Result Diagrams: 11/21/19 09:46 Additional Labs: Post Labs Blood Type O NEGATIVE 11/21/19 09:46 Hep Bs Antigen Non-Reactive S/CO (NonReactive) 11/21/19 09:46
[2019-11-23] MEDS: Ibuprofen 800 MG TAB PO SCH (06:05)
[2019-11-23 09:02] VITALS: BP 108/65; TEMP 98.1
--- NOTE | 2019-11-25 02:42 | OP ---
DATE OF PROCEDURE: 11/21/2019 RESIDENT: Kristine Farias DO PRIMARY SURGEON: Mary Juarez MD PROCEDURE PERFORMED: Spontaneous vaginal delivery. PREOPERATIVE DIAGNOSES: 1. Term intrauterine . 2. Active labor. 3. Group B strep positive. POSTOPERATIVE DIAGNOSES: 1. Term intrauterine , delivered. 2. Spontaneous vaginal delivery. 3. Group B strep positive. INDICATIONS FOR PROCEDURE: This is a very pleasant 24-year-old G3, P1-0-1-1 at 39.2 weeks, who presents to Labor and Delivery in active labor. DESCRIPTION OF PROCEDURE: After an uneventful intrapartum course, she delivered a viable female over an intact perineum in occipitoanterior position. Anterior shoulder was delivered with the remainder of the body to follow. No nuchal cord. The cord was clamped and cut and grossly normal female was placed on mom's chest. Cord blood was collected. The placenta was delivered intact with gentle traction on cord. Three-vessel cord was noted. Placenta was discarded. The cervix and vagina were inspected for lacerations and there was a small periurethral abrasion that was hemostatic. Estimated blood loss, less than 100 mL. Patient to go to for routine recovery/care. Grossly normal female with Apgars of 8 and 9 at 1 and 5 minutes respectively. weight is 3.197 kg. Job ID: [id number] [facility]
== END 2019-11-23 10:52 | disposition home or self-care (01) | DRG 807 ==
LOC: L&D/OP 09:31 → L&D-LIB 10:19 → 3SE 15:23
PROVIDERS: ADMIT Obstetrics & Gynecology; ATTEND Obstetrics & Gynecology
PROC: 10E0XZZ Delivery of Products of Conception, External Approach (ICD-10-PCS; principal; 2019-11-21)
DX: O99.824 Streptococcus B carrier state complicating childbirth (principal); Z37.0 Single live birth; O99.284 Endocrine, nutritional and metabolic diseases complicating childbirth; E03.9 Hypothyroidism, unspecified; Z3A.39 39 weeks gestation of pregnancy; Z79.890 Hormone replacement therapy; Z88.8 Allergy status to other drugs, medicaments and biological substances; Z88.5 Allergy status to narcotic agent; Z88.1 Allergy status to other antibiotic agents
CPT/HCPCS: 51702; 85027; 86780; 86850; 86870; 86900; 86901; 87340; 99285; J0595; J2001; J2540; J2590; S0020